=== PATIENT | female | born 1995 | race Caucasian/White ===

== ENCOUNTER 2016-09-06 20:21 | Emergency (ER) | payer SELFPAY ==
[~2016-09-06] VITALS: Ht 162.6 cm; Wt 65.0 kg
[2016-09-06 22:50] VITALS: BP 122/65
== END 2016-09-06 22:51 | disposition home or self-care (01) ==
LOC: ER 22:31
DX: H66.92 Otitis media, unspecified, left ear (principal); B34.9 Viral infection, unspecified; F17.200 Nicotine dependence, unspecified, uncomplicated
CPT/HCPCS: 99283